=== PATIENT | male | born 1950 | race Hispanic/Latino ===

== ENCOUNTER 2018-02-02 08:57 | Day surgery (SDC) | payer MEDICARE, BC ==
[2018-02-02 09:08] VITALS: BMI 27.1
[2018-02-02] MEDS ORDERED: Lactated Ringer's 500 ML IV ONE (09:12)
[2018-02-02] MEDS ORDERED: Propofol 10 mg/ml Inj (20 ML) ONE (11:15)
[2018-02-02 11:45] VITALS: TEMP 97
[2018-02-02 12:06] VITALS: BP 103/58; PULSE 82; RESP 16; O2SAT 97
== END 2018-02-02 12:44 | disposition home or self-care (01) ==
LOC: H.ENDO 08:57
PROVIDERS: ATTEND Internal Medicine Gastroenterology
DX: Z12.11 Encounter for screening for malignant neoplasm of colon (principal); M19.90 Unspecified osteoarthritis, unspecified site; E78.5 Hyperlipidemia, unspecified; I10 Essential (primary) hypertension; M10.9 Gout, unspecified; K64.1 Second degree hemorrhoids; D12.5 Benign neoplasm of sigmoid colon
CPT/HCPCS: 45380; 45385; 88305; J2001; J2704; J7120